=== PATIENT | male | born 1945 | race Caucasian/White ===

== ENCOUNTER 2016-11-09 13:04 | Emergency (ER) | payer OTHER ==
[2016-11-09 13:19] VITALS: BP 139/89; PULSE 93; TEMP 98.1; BMI 29.9
--- NOTE | 2016-11-09 13:20 | PDOC ---
History of Present Illness - General Chief Complaint: Injury Stated Complaint: RT KNEE PAIN Time Seen by Provider: 11/09/16 13:06 History Source: Patient (Patient walked in along with accompaying lady complaining of pain in the right knee, swelling after fall on ice prior to arrival) Exam Limitations: No Limitations - History of Present Illness Occurred: reports: just prior to arrival Severity: reports: moderate Pain Location: reports: lower extremity Method of Injury: Yes: fall Modifying Factors: improves with: cold therapy, rest Loss of Consciousness: no loss of consciousness Associated Symptoms (Fall): denies symptoms Past History - Travel Traveled outside of the country in the last 30 days: No Close contact w/someone who was outside of country & ill: No - Past Medical History Allergies/Adverse Reactions: Allergies Allergy/AdvReac Type Severity Reaction Status Date / Time Penicillins Allergy Rash Verified 11/09/16 13:11 Home Medications: Ambulatory Orders Amlodipine Besylate [Norvasc] 5 mg PO DAILY tablet 06/09/15 Aspirin [Aspir 81] 81 mg PO DAILY 06/09/15 Atorvastatin Ca [Lipitor] 10 mg PO DAILY tablet 06/09/15 Calcium (Oyster Shell) [Elemental Calcium [Nf]] 600 mg PO DAILY tablet Cholecalciferol (Vitamin D3) [Vitamin D] 400 unit PO DAILY NS 06/09/15 Tamoxifen Citrate 10 mg PO DAILY tablet 06/09/15 Cancer: Yes (RT.BREAST,KIDNEY,PROSTATE) HTN: Yes Other medical history: [place] - Surgical History Orthopedic Surgery: Yes (ARTHROSCOPY, MIGUEL IN RT LEG) Other Surgical History: Nephrectomy 11/09/16 13:21 - Psycho/Social/Smoking Cessation Hx Smoking History: Never smoked Hx Alcohol Use: No Drug/Substance Use Hx: No Substance Use Type: None Review of Systems - Review of Systems Able to Perform ROS?: Yes Is the patient limited Bangladeshi proficient: Yes Constitutional: Yes: Weakness HEENTM: No: Symptoms Reported, See HPI, Eye Pain, Blurred Vision, Tearing, Recent change in vision, Double Vision, Cataracts, Ear Pain, Ocular Prothesis, Ear Discharge, Nose Pain, Nose Congestion, Tinnitus, Nose Bleeding, Hearing Loss , Throat Pain, Throat Swelling, Mouth Pain, Dental Problems, Difficulty Swallowing, Mouth Swelling, Other Respiratory: No: Symptoms reported, See HPI, Cough, Orthopnea, Shortness of Breath, SOB with Exertion, SOB at Rest, Stridor, Wheezing, Productive cough, Hemoptysis, Other Cardiac (ROS): No: Symptoms Reported, See HPI, Chest Pain, Edema, Irregular Heart Rate, Lightheadedness, Palpitations, Syncope, Chest Tightness, Other ABD/GI: No: Symptoms Reported, See HPI, Abdominal Distended, Abd. Pain w/ defecation, Blood Streaked Bowels, Constipated, Diarrhea, Difficulty Swallowing , Nausea, Poor Appetite, Poor Fluid Intake, Rectal Bleeding, Vomiting, Indigestion, Abdominal cramping, Tarry Stools, Other Musculoskeletal: Yes: Symptoms Reported, See HPI Integumentary: No: Symptoms Reported, See HPI, Bruising, Change in Color, Change in Hair/Nails, Dryness, Erythema, Flushing, Lesions, Lumps, Pallor, Pruritus, Rash, Sweating, Other Neurological: Yes: See HPI, Pre-Existing Deficit Psychiatric: No: Anxiety, Depression, Frequent Crying, Stressors, Sleep Pattern Change, Emotional Problems, Mood Swings, Change in Appetite, Other Endocrine: No: Symptoms Reported, See HPI, Excessive Sweating, Flushing, Intolerance to Cold, Intolerance to Heat, Increased Hunger, Increased Thirst, Increased Urine, Unexplained Weight Gain, Unexplained Weight Loss, Change in Weight, Other Hematologic/Lymphatic: No: Symptoms Reported, See HPI, Anemia, Blood Clots, Easy Bleeding, Easy Bruising, Bleeding Diathesis, Lymph Node Abnormalities, Swollen Glands, Other All Other Systems: Reviewed and Negative *Physical Exam - Physical Exam General Appearance: Yes: Nourished, Appropriately Dressed, Thin HEENT: positive: MARIA FERNANDA Neck: positive: Supple Musculoskeletal: positive: Other (Swollen, tender, echymotic right knee) Extremity: positive: Normal Capillary Refill, Swelling (Swelling,, tenderness, hematoma right knee. Able to put weight on it (generally weaker since polio)) Integumentary: positive: Normal Color Neurologic: positive: Fully Oriented, Alert, Normal Mood/Affect Progress Note - Progress Note Progress Note: Patient seen immediately from arrival. Order placed in . Denied any need for pain medication for now Advised to check with Dr Castro today for follow up in 1-2 days *DC/Admit/Observation/Transfer Diagnosis at time of Disposition: Knee joint injury Qualifiers: Encounter type: initial encounter Laterality: right Qualified Code(s): S89.91XA - Unspecified injury of right lower leg, initial encounter - Discharge Dispostion Disposition: HOME Condition at time of disposition: Stable Admit: No - Referrals Referrals: Bridger Castro MD [Staff Physician] - - Patient Instructions Printed Discharge Instructions: DI for Knee Sprain - Post Discharge Activity Work/School Note: Back to Work
== END 2016-11-09 14:10 | disposition home or self-care (01) ==
LOC: FER 13:04
DX: S89.91XA Unspecified injury of right lower leg, initial encounter (principal); W00.0XXA Fall on same level due to ice and snow, initial encounter; Y93.89 Activity, other specified; Y92.410 Unspecified street and highway as the place of occurrence of the external cause; Z85.3 Personal history of malignant neoplasm of breast; Z85.528 Personal history of other malignant neoplasm of kidney; Z85.46 Personal history of malignant neoplasm of prostate; I10 Essential (primary) hypertension; Z79.82 Long term (current) use of aspirin
CPT/HCPCS: 73562-TC-RT; 99283-25